=== PATIENT | male | born 1970 | race Two or more races ===

== ENCOUNTER 2018-07-27 01:02 | Emergency (ER) | payer MEDICAID ==
[~2018-07-27] VITALS: Ht 180.3 cm; Wt 93.0 kg
[2018-07-27] MEDS ORDERED: HydrOXYzine 50mg tab ORAL ONE (01:30)
[2018-07-27] MEDS ORDERED: Solu-MEDROL 125mg Inj IVP ONE (01:30)
--- NOTE | 2018-07-27 01:31 | Emergency Room Report ---
History of Present Illness General Chief Complaint: Allergic Reaction Source: Patient Present Illness HPI This is a 47-year-old male with no past medical history. He presents with allergic reaction. This morning he has some back pain so his coworker gave him some anti-inflammatory medication. He started getting very itchy. He went to [place] and was given Benadryl and dexamethasone. Symptom worsen as he take the Benadryl through the whole day. After taking the Benadryl he will get more rash and itching. No restaurant complaint. No fever chills but no nausea no vomiting. Never had this problem before. Allergies: Coded Allergies: No Known Allergies (Unverified , 07/27/18) Patient History Past Medical History: see triage record, old chart reviewed Past Surgical History: none Pertinent Family History: none Social History: Denies: smoking Immunizations: other Reviewed Nursing Documentation: PMH: Agreed; PSxH: Agreed Nursing Documentation-PM Past Medical History: No Stated History Review of Systems Eye: Denies: eye pain, blurred vision ENT: Denies: ear pain, nose congestion, throat swelling Respiratory: Denies: cough, shortness of breath Cardiovascular: Denies: chest pain, palpitations Gastrointestinal: Denies: abdominal pain, diarrhea, nausea, vomiting Musculoskeletal: Denies: back pain, joint pain Skin: Reports: rash Neurological: Denies: headache, numbness Endocrine: Denies: increased thirst, increased urine Hematologic/Lymphatic: Denies: easy bruising All Other Systems: negative except mentioned in HPI Physical Exam Vital Signs Date Time Temp Pulse Resp B/P (MAP) Pulse Ox O2 Delivery O2 Flow Rate FiO2 07/27/18 01:10 97.7 80 16 151/93 96 Room Air 97.7 vitals with high blood pressure Sp02 EP Interpretation: reviewed, normal General Appearance: well appearing, no apparent distress, alert Head: normocephalic, atraumatic Eyes: bilateral eye PERRL, bilateral eye EOMI ENT: hearing grossly normal, normal pharynx Neck: full range of motion, supple, no meningismus Respiratory: chest non-tender, lungs clear, normal breath sounds Cardiovascular #1: regular rate, rhythm, no murmur Gastrointestinal: normal bowel sounds, non tender, no mass, no organomegaly, no bruit, non-distended Musculoskeletal: back normal, gait/station normal, normal range of motion Neurologic: alert, oriented x3 Psychiatric: mood/affect normal Skin: warm/dry, rash - diffuse urticaria Medical Decision Making Diagnostic Impression: Primary Impression: Allergic reaction Qualified Codes: T78.40XA - Allergy, unspecified, initial encounter ER Course Patient with allergic reaction. No evidence of anaphylaxis or respiratory issue. Completely resolved with Solu-Medrol and Vistaril. We'll discharge home. Last Vital Signs Date Time Temp Pulse Resp B/P (MAP) Pulse Ox O2 Delivery O2 Flow Rate FiO2 07/27/18 01:10 97.7 80 16 151/93 96 Room Air 97.7 Status: improved Disposition: HOME, SELF-CARE Condition: Stable Scripts Hydroxyzine Pamoate* (VISTARIL*) 50 Mg Capsule 50 MG ORAL EVERY 6 HOURS, #30 TAB 0 Refills Prov: KATH LY M.D. 07/27/18 Patient Instructions: Drug Allergy Additional Instructions: Stop the Benadryl. Take Vistaril instead. Follow-up with your doctor in 7 days. Return if worse. KATH LY M.D. Jul 27, 2018 01:31
[2018-07-27 02:06] VITALS: BP 136/87
[2018-07-27] MEDS ORDERED: VISTARIL50 MG ORAL (02:55)
[2018-07-27 03:07] VITALS: BP 120/75
[2018-07-27 03:08] VITALS: BP 128/75
== END 2018-07-27 03:11 | disposition home or self-care (01) ==
LOC: EMR 01:35
DX: T78.40XA Allergy, unspecified, initial encounter (principal); X58.XXXA Exposure to other specified factors, initial encounter; R21 Rash and other nonspecific skin eruption
CPT/HCPCS: 96374; 96375; 99284; J2930; S0028

== ENCOUNTER 2019-02-21 14:37 | Inpatient (IN) | payer MEDICAID ==
[~2019-02-21] VITALS: Ht 182.9 cm; Wt 98.9 kg
[~2019-02-21 14:37] MED LIST: VISTARIL50 MG ORAL
[2019-02-21] MEDS ORDERED: NKM (14:43)
[2019-02-21 14:45] VITALS: BP 133/76
--- NOTE | 2019-02-21 14:51 | NUR ---
ED Nurse Note: Pt from home came in due to non radiating sternal CP started 2 hours ago. Denies SOB and N/V. Pt is AAO x4, ambulates with steady gait with unlabored breathing. Dr Davis aware.
--- NOTE | 2019-02-21 14:59 | Emergency Room Report ---
History of Present Illness General Chief Complaint: Chest Pain Source: Patient Present Illness HPI Patient is a 48-year-old male brought in by self after increased chest discomfort. Patient reports of increased pressure-like chest discomfort. This radiated to his left arm. Patient had onset of symptoms approximately 1-1/2 hours ago was intermittent in nature was onset during light activity. Patient denies any prior medical history but does not see his doctor regularly and is unsure if he has had prior history of diabetes or high cholesterol. Patient denies being a smoker. He states he does not drink alcohol regularly. Allergies: Coded Allergies: LORATADINE (Verified Allergy, Unknown, rash, 02/21/19) Patient History Past Medical History: see triage record Reviewed Nursing Documentation: PMH: Agreed; PSxH: Agreed Nursing Documentation-PMH Past Medical History: No Stated History Review of Systems All Other Systems: negative except mentioned in HPI Physical Exam Vital Signs Date Time Temp Pulse Resp B/P (MAP) Pulse Ox O2 Delivery O2 Flow Rate FiO2 02/21/19 14:41 98.2 66 16 138/87 97 Room Air Sp02 EP Interpretation: reviewed, normal General Appearance: normal inspection, well appearing, no apparent distress, alert, GCS 15 Head: atraumatic ENT: normal ENT inspection, hearing grossly normal, normal voice Neck: normal inspection, full range of motion, supple, no bony tend Respiratory: normal inspection, lungs clear, normal breath sounds, no respiratory distress, no retraction, no wheezing Cardiovascular #1: regular rate, rhythm, no edema Gastrointestinal: normal inspection, normal bowel sounds, non tender, soft, no guarding, no hernia Genitourinary: no CVA tenderness Musculoskeletal: normal inspection, back normal, normal range of motion Neurologic: normal inspection, alert, oriented x3, responsive, mandrel press hand III-XII nml as tested, speech normal Psychiatric: normal inspection, judgement/insight normal, mood/affect normal Skin: normal inspection, normal color, no rash Medical Decision Making Diagnostic Impression: Primary Impression: Chest pain Additional Impression: ACS (acute coronary syndrome) ER Course Patient presented for chest pain. Differential diagnosis included but was not limited to acute coronary syndrome, pulmonary embolism, pneumonia, aortic dissection, shingles, pneumothorax, aortic dissection, esophageal rupture, pericarditis. It was noted to have EKG which showed normal sinus rhythm with nonspecific lateral ST changes. Repeat EKG at 1512 showed improvement of previous ST changes. Patient was given aspirin. Patient was given Lovenox. EKG interpreted by me showed normal sinus rhythm with a rate of [address] elevation. Patient was noted to have some trace ST depression in lead aVL and lead I which resolved with medications and when pain is resolved. Dr. Andrew Christy was contacted for inpatient management Labs Test 02/21/19 15:09 White Blood Count 7.6 K/UL (4.8-10.8) Red Blood Count 4.95 M/UL (4.70-6.10) Hemoglobin 14.3 G/DL (14.2-18.0) Hematocrit 42.0 % (42.0-52.0) Mean Corpuscular Volume 85 FL (80-99) Mean Corpuscular Hemoglobin 28.9 PG (27.0-31.0) Mean Corpuscular Hemoglobin Concent 34.1 G/DL (32.0-36.0) Red Cell Distribution Width 12.3 % (11.6-14.8) Platelet Count 252 K/UL (150-450) Mean Platelet Volume 7.3 FL (6.5-10.1) Neutrophils (%) (Auto) 52.7 % (45.0-75.0) Lymphocytes (%) (Auto) 37.0 % (20.0-45.0) Monocytes (%) (Auto) 8.3 % (1.0-10.0) Eosinophils (%) (Auto) 1.0 % (0.0-3.0) Basophils (%) (Auto) 1.0 % (0.0-2.0) D-Dimer 0.19 mg/L FEU (0.00-0.49) Sodium Level 140 MMOL/L (136-145) Potassium Level 4.0 MMOL/L (3.5-5.1) Chloride Level 102 MMOL/L (98-107) Carbon Dioxide Level 28 MMOL/L (21-32) Anion Gap 10 mmol/L (5-15) Blood Urea Nitrogen 23 mg/dL (7-18) Creatinine 0.9 MG/DL (0.55-1.30) Estimat Glomerular Filtration Rate > 60 mL/min (>60) Glucose Level 88 MG/DL (74-106) Calcium Level 9.2 MG/DL (8.5-10.1) Total Bilirubin 0.3 MG/DL (0.2-1.0) Aspartate Amino Transf (AST/SGOT) 32 U/L (15-37) Alanine Aminotransferase (ALT/SGPT) 98 U/L (12-78) Alkaline Phosphatase 54 U/L (46-116) Total Creatine Kinase 280 U/L (26-308) Creatine Kinase MB 5.6 NG/ML (0.0-3.6) Creatine Kinase MB Relative Index 2.0 Troponin I 0.000 ng/mL (0.000-0.056) C-Reactive Protein, Quantitative 0.6 mg/dL (0.00-0.90) Pro-B-Type Natriuretic Peptide 27 pg/mL (0-125) Total Protein 7.4 G/DL (6.4-8.2) Albumin 3.7 G/DL (3.4-5.0) Globulin 3.7 g/dL Albumin/Globulin Ratio 1.0 (1.0-2.7) Lipase 120 U/L (73-393) EKG Diagnostic Results Rate: normal Rhythm: NSR ST Segments: no acute changes Rhythm Strip Diag. Results EP Interpretation: yes Rhythm: NSR, no PVC's, no ectopy Last Vital Signs Date Time Temp Pulse Resp B/P (MAP) Pulse Ox O2 Delivery O2 Flow Rate FiO2 02/21/19 14:41 98.2 66 16 138/87 97 Room Air Status: improved Disposition: ADMITTED INPATIENT Condition: Serious Enrique Davis MD Feb 21, 2019 14:59
[2019-02-21] MEDS ORDERED: Aspirin Baby 81mg ORAL ONE (15:00)
[2019-02-21] MEDS ORDERED: Nitroglycerin Subl 0.4mg tab SL PRN ×2 (15:00→17:00)
--- NOTE | 2019-02-21 15:30 | NUR ---
ED Nurse Note: Blood specimen collected and sent.
[2019-02-21 15:35] LABS: HEMOGLOBIN 14.3 G/DL (14.2-18.0); MEAN CORPUSCULAR VOLUME 85 FL (80-99); MONOCYTES % (AUTO) 8.3 % (1.0-10.0); NEUTROPHILS % (AUTO) 52.7 % (45.0-75.0); PLATELET COUNT 252 K/UL (150-450); RED BLOOD COUNT 4.95 M/UL (4.70-6.10); RED CELL DISTRIBUTION WIDTH 12.3 % (11.6-14.8); WHITE BLOOD COUNT 7.6 K/UL (4.8-10.8)
[2019-02-21 15:36] LABS: ANION GAP 10 mmol/L (5-15); BLOOD UREA NITROGEN 23 mg/dL (7-18); CALCIUM 9.2 MG/DL (8.5-10.1); CARBON DIOXIDE 28 MMOL/L (21-32); CHLORIDE 102 MMOL/L (98-107); CREATININE 0.9 MG/DL (0.55-1.30); SODIUM 140 MMOL/L (136-145)
[2019-02-21 15:51] LABS: ALANINE AMINOTRANSFERASE 98 U/L (12-78); ALBUMIN 3.7 G/DL (3.4-5.0); ALKALINE PHOSPHATASE 54 U/L (46-116); ASPARTATE AMINO TRANSFERASE 32 U/L (15-37); BILIRUBIN,TOTAL 0.3 MG/DL (0.2-1.0); CKMB 5.6 NG/ML (0.0-3.6); CREATINE KINASE 280 U/L (26-308)
[2019-02-21 16:30] VITALS: BP 106/64
[2019-02-21] MEDS ORDERED: Enoxaparin 80mg Inj SUBQ ONE (16:30)
[2019-02-21] MEDS ORDERED: Miralax 17gm pkt ORAL PRN (17:00)
[2019-02-21] MEDS ORDERED: dilTIAZem HCl 25mg/5ml Inj IV PRN (17:00)
[2019-02-21] MEDS ORDERED: Enalaprilat 2.5mg/2ml Inj IV PRN (17:00)
[2019-02-21] MEDS ORDERED: Morphine Sulfate 2mg/ml Inj(IV/IM USE ONLY) IVP PRN (17:00)
[2019-02-21] MEDS ORDERED: Ketorolac 30mg Inj IV PRN (17:00)
[2019-02-21] MEDS ORDERED: Albuterol/Ipratropium 3ml neb HHN PRN (17:00)
--- NOTE | 2019-02-21 17:09 | NUR ---
ED Nurse Note: Pt retsing on bed with no s/s of distress. Denies CP at this time. Pt is aware of admission.
--- NOTE | 2019-02-21 17:25 | NUR ---
ED Nurse Note: $1251 ham money kept by patient in his wallet. Pt refused to keep it in the hospital safe.
--- NOTE | 2019-02-21 18:09 | NUR ---
ED Nurse Note: TRIED TO GIVE REPORT BUT UNBALE AT THIS TIME. CHARGE NURSE DAISHA SAID TO CALL BACK AGAIN AFTER 10MINS.
--- NOTE | 2019-02-21 18:27 | NUR ---
ED Nurse Note: REPORT GIVEN TO IBIS SABILLON OF TELEMETRY UNIT. NOTIFIED OF [employer] $1251.
[2019-02-21 18:34] VITALS: BP 112/70
--- NOTE | 2019-02-21 18:36 | NUR ---
ED Nurse Note: PT SENT TO TELEMETRY UN[facility] WILL ALL BELONGINGS. VSS.
[2019-02-21 18:45] VITALS: BP 131/92
--- NOTE | 2019-02-21 18:45 | NUR ---
NURSE NOTES: Patient arrived to [facility] on a gurney. Patient is on RA and breathing even and unlabored. Patient denies pain at this time. Heart monitor was applied per protocol. Rhythm is SR at 61. v/s were taken. Call light within reached, bed in lowest position, and side rails x2 are up. Addendum: 02/21/19 at 2001 by Munir Meade RN Report was received by RAMANDEEP Luu.
--- NOTE | 2019-02-21 18:49 | Diagnostic Imaging Report ---
Indication: Shortness of breath Technique: One view of the chest Comparison: 01/31/2011 Findings: Lungs and pleural spaces are clear. Heart size is normal Impression: No acute process
--- NOTE | 2019-02-21 19:15 | NUR ---
HAND-OFF: Report given to RAMANDEEP Arias.
--- NOTE | 2019-02-21 19:30 | NUR ---
NURSE NOTES: Report received from Dominick Ferguson RN. Pt is awake, alert, and oriented x4. Pt is on room air and breathing is even and unlabored. No acute distress noted. IV site is R AC#20g and is asymptomatic, patent, and intact. Bed is placed in lowest position with brake engaged and side rails up x2. Pt independently ambulatory with steady gait. Pt denies pain at this time. Call light and side table placed within reach. Will continue to monitor.
[2019-02-21 20:00] VITALS: BP 126/85
--- NOTE | 2019-02-21 20:36 | Cardiology Progress Note ---
Assessment/Plan Assessment/Plan [id number] Objective Last 24 Hour Vital Signs Date Time Temp Pulse Resp B/P (MAP) Pulse Ox O2 Delivery O2 Flow Rate FiO2 02/21/19 20:00 98.1 56 18 126/85 (99) 98 02/21/19 19:43 Room Air 02/21/19 18:45 97.3 61 18 131/92 (105) 98 02/21/19 18:34 98.6 82 18 112/70 100 Room Air 02/21/19 18:34 98.6 82 18 112/70 100 Room Air 02/21/19 16:30 98.3 79 20 106/64 100 Room Air 02/21/19 15:07 133/76 02/21/19 14:51 87 18 Room Air 02/21/19 14:45 98.2 87 18 133/76 98 Room Air 02/21/19 14:41 98.2 66 16 138/87 97 Room Air Laboratory Tests Test 02/21/19 15:09 White Blood Count 7.6 K/UL (4.8-10.8) Red Blood Count 4.95 M/UL (4.70-6.10) Hemoglobin 14.3 G/DL (14.2-18.0) Hematocrit 42.0 % (42.0-52.0) Mean Corpuscular Volume 85 FL (80-99) Mean Corpuscular Hemoglobin 28.9 PG (27.0-31.0) Mean Corpuscular Hemoglobin Concent 34.1 G/DL (32.0-36.0) Red Cell Distribution Width 12.3 % (11.6-14.8) Platelet Count 252 K/UL (150-450) Mean Platelet Volume 7.3 FL (6.5-10.1) Neutrophils (%) (Auto) 52.7 % (45.0-75.0) Lymphocytes (%) (Auto) 37.0 % (20.0-45.0) Monocytes (%) (Auto) 8.3 % (1.0-10.0) Eosinophils (%) (Auto) 1.0 % (0.0-3.0) Basophils (%) (Auto) 1.0 % (0.0-2.0) D-Dimer 0.19 mg/L FEU (0.00-0.49) Sodium Level 140 MMOL/L (136-145) Potassium Level 4.0 MMOL/L (3.5-5.1) Chloride Level 102 MMOL/L (98-107) Carbon Dioxide Level 28 MMOL/L (21-32) Anion Gap 10 mmol/L (5-15) Blood Urea Nitrogen 23 mg/dL (7-18) H Creatinine 0.9 MG/DL (0.55-1.30) Estimat Glomerular Filtration Rate > 60 mL/min (>60) Glucose Level 88 MG/DL (74-106) Calcium Level 9.2 MG/DL (8.5-10.1) Total Bilirubin 0.3 MG/DL (0.2-1.0) Aspartate Amino Transf (AST/SGOT) 32 U/L (15-37) Alanine Aminotransferase (ALT/SGPT) 98 U/L (12-78) H Alkaline Phosphatase 54 U/L (46-116) Total Creatine Kinase 280 U/L (26-308) Creatine Kinase MB 5.6 NG/ML (0.0-3.6) H Creatine Kinase MB Relative Index 2.0 Troponin I 0.000 ng/mL (0.000-0.056) C-Reactive Protein, Quantitative 0.6 mg/dL (0.00-0.90) Pro-B-Type Natriuretic Peptide 27 pg/mL (0-125) Total Protein 7.4 G/DL (6.4-8.2) Albumin 3.7 G/DL (3.4-5.0) Globulin 3.7 g/dL Albumin/Globulin Ratio 1.0 (1.0-2.7) Lipase 120 U/L (73-393) Ambrosio An MD Feb 21, 2019 20:36
[2019-02-21] MEDS: Heparin 5000 units/ml inj SUBQ SCH (20:48)
--- NOTE | 2019-02-21 20:51 | History & Physical ---
History and Physical History & Physicial Dictated for Int Med-Dr Christy. Dewey Corbin MD Feb 21, 2019 20:51
--- NOTE | 2019-02-21 22:45 | Consultation ---
DATE OF CONSULTATION: 02/21/2019 Cardiology Consultation CONSULTING PHYSICIAN: Ambrosio An M.D. REFERRING PHYSICIAN: Andrew Christy M.D. REASON FOR REFERRAL: Chest pain. HISTORY OF PRESENT ILLNESS: This is a middle-aged gentleman, who presented to the hospital because of abdominal pain that occurred today. First episode of pain lasted approximately one minute or so, second one went away and came back with a pressure sensation in the chest and he told his boss. He drove himself down to the emergency room. By the time he got here, the pain is improved and subsequently went away. He told the pain was approximately 15 minutes. He has never had this pain before. He is usually very active. He hikes on a regular basis, 3 or 4 times a week. He never had any pain, pressure, tightness, heaviness, shortness of breath, ascites with any of those activities and never had this pain before. There is no PND, uses two pillows for comfort. No palpitation. Occasional dizziness. No lightheadedness on standing. PAST MEDICAL HISTORY: Fairly unremarkable. No diabetes, high blood pressure, heart attack, cancer, stroke, hepatitis tuberculosis, asthma, emphysema, ulcers, kidney problems, liver problems, thyroid problems, anemia, arthritis, HIV or AIDS, blood clots or prostate problems anywhere. He has seen the physician last time 6 months ago but he has been in the process of following between different insurances. REVIEW OF SYSTEMS: GASTROINTESTINAL: Negative. GENITOURINARY: Negative. PULMONARY: Negative. CONSTITUTIONAL: Negative. NEUROLOGIC: Negative. ALLERGIES: He is not allergic to any medications. SOCIAL HISTORY: Does not smoke or drink alcoholic beverages. He works as a cook. PHYSICAL EXAMINATION: GENERAL: Shows to be middle-aged gentleman, in no respiratory distress. NECK: Supple. No jugular distention. LUNGS: Clear to auscultation and percussion. CARDIAC: S1 is normal. S2 is normal. Regular rate and rhythm. No heaves, thrills, or gallops noted. ABDOMEN: Soft, nontender. Positive bowel sounds. EXTREMITIES: There is no clubbing, cyanosis, nor is there any edema. NEUROLOGICAL: He is awake, alert, responsive, and in no apparent respiratory distress. LABORATORY AND DIAGNOSTIC DATA: White count 7.6, hemoglobin 14.3, platelet count 252. Sodium is 140, potassium 4.0, chloride 102, bicarb 28, BUN 23, creatinine 0.9, and glucose of 88. Liver function tests are relatively normal although his ALT is minimally elevated at 98, total CK of 280. First set of cardiac enzymes negative. CRP negative at 0.6. ProBNP of 27. Lipase of 120. D-dimer was 0.19. Chest x-ray showed no acute processes and his EKG shows biphasic T-waves in V1 and V4. ASSESSMENT AND PLAN: Chest pain. This patient was seen in cardiac consultation. The pain lasted approximately 15 minutes. He has never had this pain before. He does not have any significant history of diabetes, high blood pressure, high cholesterol, although he has not seen a physician in the past 6 months. His blood sugar today has not been elevated. He should have serial enzymes and EKGs checked and echocardiogram checked for tomorrow morning, depending on the results of his tests other testing may be ordered a including possible exercise stress test, Cardiolite. Ambrosio An M.D. DR: Jordi JOB#: [id number] CC:
[2019-02-22] VITALS: BP 106/70
[2019-02-22 04:00] VITALS: BP 114/65
[2019-02-22 06:36] LABS: BASOPHILS % (AUTO) 0.8 % (0.0-2.0); EOSINOPHILS % (AUTO) 0.9 % (0.0-3.0); HEMOGLOBIN 14.9 G/DL (14.2-18.0); MEAN CORPUSCULAR VOLUME 86 FL (80-99); MONOCYTES % (AUTO) 8.4 % (1.0-10.0); NEUTROPHILS % (AUTO) 45.8 % (45.0-75.0); PLATELET COUNT 247 K/UL (150-450); RED BLOOD COUNT 5.12 M/UL (4.70-6.10); RED CELL DISTRIBUTION WIDTH 12.2 % (11.6-14.8); WHITE BLOOD COUNT 6.7 K/UL (4.8-10.8)
[2019-02-22 07:08] LABS: CHOLESTEROL 202 MG/DL (< 200); HDL CHOLESTEROL 40 MG/DL (40-60); TRIGLYCERIDES 118 MG/DL (30-150)
--- NOTE | 2019-02-22 07:21 | NUR ---
HAND-OFF: Report given to Dominick Batres RN. Pt is resting in bed in stable condition. No acute distress noted. Endorsed plan of care.
--- NOTE | 2019-02-22 07:26 | NUR ---
CASE MANAGEMENT:REVIEW 48 YR OLD MALE PRESENTED TO ER CC: CHEST PAIN SI: ACS 98.2 66 16 138/87 97% ON RA CK-MB+5.6 TROPONIN(-) IS: ASA PO NTG SL X1 LOVENOX SQ X1 500CC NS BOLUS CXR : TO TELEMETRY UNIT PLAN: STRESS TEST
[2019-02-22 08:00] VITALS: BP 119/76
--- NOTE | 2019-02-22 08:00 | NUR ---
NURSE NOTE Received patient from Juana SABILLON. Patient in bed, awake, alert and oriented x4. Denies pain at this time. IV #20 on RAC intact, no s/s of infection or infiltration. Patient calm and cooperative, understands plan of care. Bed in low position, call light within reach.
--- NOTE | 2019-02-22 08:40 | NUR ---
NURSE NOTES: Addendum: 02/22/19 at 0916 by Rocky Mccarthy RN Patient refused heparin sq. Instructed patient that it is for preventing blood clots. Patient refused and stated that the one received last night was very painful and gave him a bruise.
[2019-02-22] MEDS: Heparin 5000 units/ml inj SUBQ SCH ×2 (08:43→08:48)
[2019-02-22] MEDS ORDERED: Aspirin Baby 81mg ORAL SCH (09:00)
--- NOTE | 2019-02-22 10:48 | Consultation ---
History of Present Illness General Date patient seen: Feb 22, 2019 Chief Complaint: Chest Pain Present Illness HPI 48-year-old male without any pmhx brought in by self after increased chest discomfort, pressure-like chest discomfort. This radiated to his left arm. Patient had onset of symptoms approximately 1-1/2 hours ago was intermittent in nature was onset during light activity. Patient denies being a smoker. pt is admitted to telemetry for further work up. Allergies: Coded Allergies: LORATADINE (Verified Allergy, Unknown, rash, 02/21/19) Medication History Scheduled Hydroxyzine Pamoate* (Vistaril*), 50 MG ORAL EVERY 6 HOURS No Known Medications* (NKM - No Known Medications*), 0 ., (Reported) Patient History Healthcare decision maker Resuscitation status Full Code Advanced Directive on File Past Medical/Surgical History Past Medical/Surgical History: (1) No pertinent past medical history Review of Systems Constitutional: Reports: no symptoms Eye: Reports: no symptoms Physical Exam General Appearance: WD/WN Lines, tubes and drains: peripheral HEENT: normocephalic Neck: non-tender, abnormal alignment Respiratory/Chest: chest wall non-tender, no respiratory distress Abdomen: normal bowel sounds Genitourinary/Rectal: normal genital exam Last 24 Hour Vital Signs Date Time Temp Pulse Resp B/P (MAP) Pulse Ox O2 Delivery O2 Flow Rate FiO2 02/22/19 08:52 Room Air 02/22/19 08:00 63 02/22/19 08:00 98.0 50 18 119/76 (90) 97 02/22/19 04:00 98.0 56 18 114/65 (81) 98 02/22/19 04:00 54 02/22/19 00:00 98.1 64 18 106/70 (82) 98 02/22/19 00:00 59 02/21/19 21:00 Room Air 02/21/19 20:00 98.1 56 18 126/85 (99) 98 02/21/19 20:00 59 02/21/19 19:43 Room Air 02/21/19 18:45 97.3 61 18 131/92 (105) 98 02/21/19 18:34 98.6 82 18 112/70 100 Room Air 02/21/19 18:34 98.6 82 18 112/70 100 Room Air 02/21/19 16:30 98.3 79 20 106/64 100 Room Air 02/21/19 15:07 133/76 02/21/19 14:51 87 18 Room Air 02/21/19 14:45 98.2 87 18 133/76 98 Room Air 02/21/19 14:41 98.2 66 16 138/87 97 Room Air Intake and Output 02/21/19 02/22/19 19:00 07:00 Intake Total 500 ml Balance 500 ml Intake IV Total 500 ml # Voids 1 1 Laboratory Tests Test 02/21/19 15:09 02/22/19 05:40 White Blood Count 7.6 K/UL (4.8-10.8) 6.7 K/UL (4.8-10.8) Red Blood Count 4.95 M/UL (4.70-6.10) 5.12 M/UL (4.70-6.10) Hemoglobin 14.3 G/DL (14.2-18.0) 14.9 G/DL (14.2-18.0) Hematocrit 42.0 % (42.0-52.0) 44.0 % (42.0-52.0) Mean Corpuscular Volume 85 FL (80-99) 86 FL (80-99) Mean Corpuscular Hemoglobin 28.9 PG (27.0-31.0) 29.1 PG (27.0-31.0) Mean Corpuscular Hemoglobin Concent 34.1 G/DL (32.0-36.0) 33.9 G/DL (32.0-36.0) Red Cell Distribution Width 12.3 % (11.6-14.8) 12.2 % (11.6-14.8) Platelet Count 252 K/UL (150-450) 247 K/UL (150-450) Mean Platelet Volume 7.3 FL (6.5-10.1) 7.5 FL (6.5-10.1) Neutrophils (%) (Auto) 52.7 % (45.0-75.0) 45.8 % (45.0-75.0) Lymphocytes (%) (Auto) 37.0 % (20.0-45.0) 44.0 % (20.0-45.0) Monocytes (%) (Auto) 8.3 % (1.0-10.0) 8.4 % (1.0-10.0) Eosinophils (%) (Auto) 1.0 % (0.0-3.0) 0.9 % (0.0-3.0) Basophils (%) (Auto) 1.0 % (0.0-2.0) 0.8 % (0.0-2.0) D-Dimer 0.19 mg/L FEU (0.00-0.49) Sodium Level 140 MMOL/L (136-145) Potassium Level 4.0 MMOL/L (3.5-5.1) Chloride Level 102 MMOL/L (98-107) Carbon Dioxide Level 28 MMOL/L (21-32) Anion Gap 10 mmol/L (5-15) Blood Urea Nitrogen 23 mg/dL (7-18) H Creatinine 0.9 MG/DL (0.55-1.30) Estimat Glomerular Filtration Rate > 60 mL/min (>60) Glucose Level 88 MG/DL (74-106) Calcium Level 9.2 MG/DL (8.5-10.1) Total Bilirubin 0.3 MG/DL (0.2-1.0) Aspartate Amino Transf (AST/SGOT) 32 U/L (15-37) Alanine Aminotransferase (ALT/SGPT) 98 U/L (12-78) H Alkaline Phosphatase 54 U/L (46-116) Total Creatine Kinase 280 U/L (26-308) Creatine Kinase MB 5.6 NG/ML (0.0-3.6) H Creatine Kinase MB Relative Index 2.0 Troponin I 0.000 ng/mL (0.000-0.056) 0.001 ng/mL (0.000-0.056) C-Reactive Protein, Quantitative 0.6 mg/dL (0.00-0.90) 0.5 mg/dL (0.00-0.90) Pro-B-Type Natriuretic Peptide 27 pg/mL (0-125) Total Protein 7.4 G/DL (6.4-8.2) Albumin 3.7 G/DL (3.4-5.0) Globulin 3.7 g/dL Albumin/Globulin Ratio 1.0 (1.0-2.7) Lipase 120 U/L (73-393) Prothrombin Time 10.3 SEC (9.30-11.50) Prothromb Time International Ratio 1.0 (0.9-1.1) Activated Partial Thromboplast Time 30 SEC (23-33) Triglycerides Level 118 MG/DL (30-150) Cholesterol Level 202 MG/DL (< 200) H LDL Cholesterol 146 mg/dL (<100) H HDL Cholesterol 40 MG/DL (40-60) Cholesterol/HDL Ratio 5.1 (3.3-4.4) H Thyroid Stimulating Hormone (TSH) 0.712 uiU/mL (0.358-3.740) Height (Feet): 6 Height (Inches): 6.00 Weight (Pounds): 218 Medications Current Medications Medications (Trade) Dose Ordered Sig/Robert Route PRN Reason Start Time Stop Time Status Last Admin Dose Admin Acetaminophen (Tylenol) 650 mg Q4H PRN ORAL FEVER 02/21/19 17:00 03/23/19 16:59 Albuterol/ Ipratropium (Albuterol/ Ipratropium) 3 ml Q4H PRN HHN Shortness of Breath 02/21/19 17:00 02/26/19 16:59 Aspirin (ASA) 162 mg DAILY ORAL 02/22/19 09:00 03/24/19 08:59 02/22/19 08:40 Diltiazem HCl (Cardizem) 10 mg Q1H PRN IV heart rate more than 120, 02/21/19 17:00 03/23/19 16:59 Enalaprilat (Vasotec) 2.5 mg Q6H PRN IV sbp more than 160 02/21/19 17:00 03/23/19 16:59 Heparin Sodium (Porcine) (Heparin 5000 units/ml) 5,000 units EVERY 12 HOURS SUBQ 02/21/19 21:00 03/23/19 20:59 Ketorolac Tromethamine (Toradol 30mg) 30 mg Q6H PRN IV moderate pain ( 4-6) 02/21/19 17:00 02/26/19 16:59 Morphine Sulfate (Morphine Sulfate) 2 mg Q4H PRN IVP severe Pain (Pain Scale 7-10) 02/21/19 17:00 02/28/19 16:59 Nitroglycerin (Ntg) 0.4 mg Q5M PRN SL Prn Chest Pain 02/21/19 17:00 03/23/19 16:59 Ondansetron HCl (Zofran) 4 mg Q6H PRN IVP Nausea & Vomiting 02/21/19 17:00 03/23/19 16:59 Polyethylene Glycol (Miralax) 17 gm DAILYPRN PRN ORAL Constipation 02/21/19 17:00 03/23/19 16:59 Temazepam (Restoril) 15 mg HSPRN PRN ORAL Insomnia 02/21/19 17:00 02/28/19 16:59 Assessment/Plan Problem List: (1) ACS (acute coronary syndrome) ICD Codes: I24.9 - Acute ischemic heart disease, unspecified SNOMED: 190361345 (2) No pertinent past medical history ICD Codes: Z78.9 - Other specified health status SNOMED: 246375157 Assessment/Plan serial ekg, troponin echo cardio to see. Olga Cardenas MD Feb 22, 2019 10:48
[2019-02-22 12:00] VITALS: BP 126/85
--- NOTE | 2019-02-22 12:03 | Cardiology Report ---
APPROVED REPORT EXAM: Two-dimensional and M-mode echocardiogram with Doppler and color Doppler. INDICATION LV FUCNTION M-Mode DIMENSIONS IVSd1.3 (0.7-1.1cm)Left Atrium (MM)3.0 (1.6-4.0cm) LVDd5.4 (3.5-5.6cm)Aortic Root3.8 (2.0-3.7cm) PWd1.3 (0.7-1.1cm)Aortic Cusp Exc.2.0 (1.5-2.0cm) IVSs1.7 cm LVDs3.9 (2.5-4.0cm) PWs1.2 cm Normal left ventricular chamber size, systolic function and wall motion. Left ventricular ejection fraction estimated to be 55%. Mild left ventricular hypertrophy by 2-D. No evidence of pericardial effusion. All other cardiac chamber sizes are within normal limits. Focal aortic valve sclerosis with adequate cusp excursion. Mildly Thickened mitral valve leaflets with normal excursion. pulmonic valve not well visualized. Normal tricuspid valve structure. IVC at normal size without physiologic collapse. A color flow and spectral Doppler study was performed and revealed: No aortic regurgitation. Mild mitral regurgitation. Mitral diastolic velocities suggest reduced left ventricular relaxation c/w mild LV diastolic dysfunction (Grade I ). Mild tricuspid regurgitation. Tricuspid systolic velocities suggests peak right ventricular systolic pressure of 30mmHg.
--- NOTE | 2019-02-22 12:22 | Cardiology Progress Note ---
Assessment/Plan Assessment/Plan chest pain hyper lipidemia trop neg ekg repeat neg stress test today home if neg Subjective Cardiovascular: Denies: chest pain, lightheadedness, palpitations Respiratory: Denies: shortness of breath Gastrointestinal/Abdominal: Denies: abdominal pain Genitourinary: Denies: burning Objective Last 24 Hour Vital Signs Date Time Temp Pulse Resp B/P (MAP) Pulse Ox O2 Delivery O2 Flow Rate FiO2 02/22/19 12:00 98.0 86 16 126/85 (99) 98 02/22/19 08:52 Room Air 02/22/19 08:00 63 02/22/19 08:00 98.0 50 18 119/76 (90) 97 02/22/19 04:00 98.0 56 18 114/65 (81) 98 02/22/19 04:00 54 02/22/19 00:00 98.1 64 18 106/70 (82) 98 02/22/19 00:00 59 02/21/19 21:00 Room Air 02/21/19 20:00 98.1 56 18 126/85 (99) 98 02/21/19 20:00 59 02/21/19 19:43 Room Air 02/21/19 18:45 97.3 61 18 131/92 (105) 98 02/21/19 18:34 98.6 82 18 112/70 100 Room Air 02/21/19 18:34 98.6 82 18 112/70 100 Room Air 02/21/19 16:30 98.3 79 20 106/64 100 Room Air 02/21/19 15:07 133/76 02/21/19 14:51 87 18 Room Air 02/21/19 14:45 98.2 87 18 133/76 98 Room Air 02/21/19 14:41 98.2 66 16 138/87 97 Room Air General Appearance: no apparent distress, alert Neck: supple Cardiovascular: normal rate Respiratory/Chest: lungs clear, normal breath sounds Abdomen: normal bowel sounds, non tender, soft Extremities: no swelling Intake and Output 02/21/19 02/22/19 19:00 07:00 Intake Total 500 ml Balance 500 ml Intake IV Total 500 ml # Voids 1 1 Laboratory Tests Test 02/21/19 15:09 02/22/19 05:40 White Blood Count 7.6 K/UL (4.8-10.8) 6.7 K/UL (4.8-10.8) Red Blood Count 4.95 M/UL (4.70-6.10) 5.12 M/UL (4.70-6.10) Hemoglobin 14.3 G/DL (14.2-18.0) 14.9 G/DL (14.2-18.0) Hematocrit 42.0 % (42.0-52.0) 44.0 % (42.0-52.0) Mean Corpuscular Volume 85 FL (80-99) 86 FL (80-99) Mean Corpuscular Hemoglobin 28.9 PG (27.0-31.0) 29.1 PG (27.0-31.0) Mean Corpuscular Hemoglobin Concent 34.1 G/DL (32.0-36.0) 33.9 G/DL (32.0-36.0) Red Cell Distribution Width 12.3 % (11.6-14.8) 12.2 % (11.6-14.8) Platelet Count 252 K/UL (150-450) 247 K/UL (150-450) Mean Platelet Volume 7.3 FL (6.5-10.1) 7.5 FL (6.5-10.1) Neutrophils (%) (Auto) 52.7 % (45.0-75.0) 45.8 % (45.0-75.0) Lymphocytes (%) (Auto) 37.0 % (20.0-45.0) 44.0 % (20.0-45.0) Monocytes (%) (Auto) 8.3 % (1.0-10.0) 8.4 % (1.0-10.0) Eosinophils (%) (Auto) 1.0 % (0.0-3.0) 0.9 % (0.0-3.0) Basophils (%) (Auto) 1.0 % (0.0-2.0) 0.8 % (0.0-2.0) D-Dimer 0.19 mg/L FEU (0.00-0.49) Sodium Level 140 MMOL/L (136-145) Potassium Level 4.0 MMOL/L (3.5-5.1) Chloride Level 102 MMOL/L (98-107) Carbon Dioxide Level 28 MMOL/L (21-32) Anion Gap 10 mmol/L (5-15) Blood Urea Nitrogen 23 mg/dL (7-18) H Creatinine 0.9 MG/DL (0.55-1.30) Estimat Glomerular Filtration Rate > 60 mL/min (>60) Glucose Level 88 MG/DL (74-106) Calcium Level 9.2 MG/DL (8.5-10.1) Total Bilirubin 0.3 MG/DL (0.2-1.0) Aspartate Amino Transf (AST/SGOT) 32 U/L (15-37) Alanine Aminotransferase (ALT/SGPT) 98 U/L (12-78) H Alkaline Phosphatase 54 U/L (46-116) Total Creatine Kinase 280 U/L (26-308) Creatine Kinase MB 5.6 NG/ML (0.0-3.6) H Creatine Kinase MB Relative Index 2.0 Troponin I 0.000 ng/mL (0.000-0.056) 0.001 ng/mL (0.000-0.056) C-Reactive Protein, Quantitative 0.6 mg/dL (0.00-0.90) 0.5 mg/dL (0.00-0.90) Pro-B-Type Natriuretic Peptide 27 pg/mL (0-125) Total Protein 7.4 G/DL (6.4-8.2) Albumin 3.7 G/DL (3.4-5.0) Globulin 3.7 g/dL Albumin/Globulin Ratio 1.0 (1.0-2.7) Lipase 120 U/L (73-393) Prothrombin Time 10.3 SEC (9.30-11.50) Prothromb Time International Ratio 1.0 (0.9-1.1) Activated Partial Thromboplast Time 30 SEC (23-33) Triglycerides Level 118 MG/DL (30-150) Cholesterol Level 202 MG/DL (< 200) H LDL Cholesterol 146 mg/dL (<100) H HDL Cholesterol 40 MG/DL (40-60) Cholesterol/HDL Ratio 5.1 (3.3-4.4) H Thyroid Stimulating Hormone (TSH) 0.712 uiU/mL (0.358-3.740) Ambrosio An MD Feb 22, 2019 12:22
--- NOTE | 2019-02-22 12:28 | Cardiology Report ---
APPROVED REPORT EKG Measurement Heart [id number] Normal sinus rhythm Normal ECG
--- NOTE | 2019-02-22 13:14 | NUR ---
Myocardial Perfusion scan complete.
--- NOTE | 2019-02-22 14:01 | Diagnostic Imaging Report ---
Indications: 48-year-old male with chest pain Technique: Single day single isotope protocol utilized. Initially, resting images obtained using IV administration 10.4 millicuries 99M technetium Myoview. Subsequently, patient underwent treadmill stress testing. See cardiology report for details. During adenosine infusion, IV administration 30 mCi 99 M technetium Myoview. SPECT and planar images obtained. SPECT images gated to 8 phases of the cardiac cycle were also obtained, and reformatted into cine images for evaluation of ejection fraction. Comparison: none Findings: Presence or absence of symptoms during exercise is not described in the cardiology report, although the report to say that the patient stopped exercise due to having achieved target heart rate. Patient exercised for 9 minutes 33 seconds, reached a peak heart rate of 157 bpm, in excess of the target heart rate of 145 bpm. Per cardiology report, resting EKG demonstrates normal sinus rhythm. Report does not describe presence or absence of ST changes during exercise. Imaging demonstrates normal poststress perfusion. No fixed nor reversible post stress perfusion defects demonstrated. Calculated post stress ejection fraction 58%. No focal wall motion abnormality demonstrated Impression: Nonischemic clinical response to pharmacologic stress, per cardiology report Nonischemic electrocardiographic response to pharmacologic stress, per cardiology report No imaging findings to suggest ischemia, at level of stress achieved. Calculated post stress ejection fraction 58%
[2019-02-22 16:00] VITALS: BP 124/69
--- NOTE | 2019-02-22 17:07 | NUR ---
NURSE NOTES: Discharge order in, pt notified, IV removed and Id Band also, pt recieved after care plan and med recon. Pt Vitals WNL, Pt Ox4 calm and cooperative, pt stated he has all his belongings and wallet with him. no s/s of distress or sob. Pt stated he had all his money on discharge
--- NOTE | 2019-02-22 17:11 | NUR ---
NURSE NOTES: Md Cardenas notified of Stress test results, he siad to proceed with discharge
--- NOTE | 2019-02-22 22:45 | History and Physical Report ---
DATE OF ADMISSION: 02/21/2019 CHIEF COMPLAINT: The patient is a 48-year-old male, who presents with a chief complaint of chest pain. HISTORY OF PRESENT ILLNESS: Began on 02/21/2019 couple of hours prior to admission. The patient began to experience chest pain. Pain was substernal. The pain also radiates to the left arm. The symptoms occurred during light activity. The patient states that the pain resolved on its own. The patient presented to [facility] emergency room. The patient was admitted for chest pain rule out acute coronary syndrome. REVIEW OF SYSTEMS: CONSTITUTIONAL: The patient denies weight loss or weight gain. The patient denies fevers or chills. HEENT: The patient denies ear or throat pain. The patient denies headache. CARDIOVASCULAR: The patient complains of chest pain as above. The patient denies palpitations. ABDOMINAL: The patient denies nausea, vomiting, diarrhea, or constipation. GENITOURINARY: The patient denies dysuria or increased frequency of urination. NEUROMUSCULAR: The patient denies seizures or generalized weakness. PAST MEDICAL HISTORY: The patient denies. PAST SURGICAL HISTORY: The patient denies. CURRENT MEDICATIONS: The patient denies. ALLERGIES: No known drug allergies. SOCIAL HISTORY: The patient is single. The patient denies tobacco or alcohol use. PHYSICAL EXAMINATION: VITAL SIGNS: Temperature 98.2, respirations 16, pulse 66, and blood pressure 132/87. GENERAL: The patient is a well-developed and well-nourished male, in no apparent distress. HEENT: Eyes, pupils are equal and responsive to light and accommodation. Extraocular movements are intact. NECK: Supple without lymphadenopathy. CHEST: Lungs are clear to auscultation bilaterally without wheezes or rales. CARDIOVASCULAR: Regular rhythm and rate. S1 and S2 are normal without murmurs, rubs, or gallops. ABDOMEN: Soft, nontender, and nondistended. Positive bowel sounds. No evidence of hepatosplenomegaly. Currently, no rebound or guarding noted. EXTREMITIES: Negative for clubbing, cyanosis, or edema. RECTAL/GENITAL: Refused. NEUROLOGIC: Cranial nerves II through XII are grossly intact without focal deficits. Motor strength is 5/5 bilaterally. Deep tendon reflexes are 2+ plantar. LABORATORY STUDIES: WBC 7.6, hemoglobin 14.3, hematocrit 42.0, and platelets 252,000. Sodium 140, potassium 4.0, chloride 102, CO2 28, BUN 23, creatinine 0.9, and glucose 88. ALT elevated at 98. Troponin 0.0. Chest x-ray was reported as no acute disease. ASSESSMENT: This is a 48-year-old male. 1. Chest pain. TREATMENT: 1. Chest pain. A Cardiology consultation has been obtained with Dr. Ambrosio An. A Cardiolite stress test is pending. We will follow recommendation of Cardiology. Serial troponin levels will be performed. Dewey Corbin M.D. DR: ANN JOB#: [id number] CC:
--- NOTE | 2019-02-24 12:24 | Discharge Summary ---
Discharge Summary Discharge Summary _ DATE OF ADMISSION: 02/21/2019 DATE OF DISCHARGE: 02/22/2019 DISCHARGED BY: Dr. Christy REASON FOR ADMISSION: 48 years old male without significant past medical history, presented to emergency department with pressure-like chest discomfort with radiation to left arm. Symptoms started about 1-1/2-hour prior to presentation to ED. Symptoms were reported to be intermittent with onset during light activity. Patient denied smoking. Patient denied drinking alcohol on a regular basis. Upon evaluation vital signs were stable. Laboratory workup revealed no leukocytosis, stable hemoglobin and hematocrit. D-dimer stable -0.19. Stable electrolytes and renal parameters, stable LFT. Troponin negative. CK 280. Pro BNP 27. EKG revealed sinus rhythm, no acute ischemic changes. Chest x-ray demonstrated no acute cardiopulmonary pathology. Patient subsequently was admitted to telemetry floor for further workup. CONSULTANTS: quality improvement analyst Dr. An pulmonary Dr. Cardenas [facility]SE: Patient admitted to telemetry floor. Cardiology and pulmonology followed. Serial troponin were negative. EKG revealed no acute ischemic changes. Patient was ruled out for acute ID. Echocardiogram revealed preserved ejection fraction 55% with no evidence of wall motion abnormality. Mild left ventricular hypertrophy. No evidence of pericardial effusion. Right ventricular systolic pressure of 30. Blood pressure was closely monitored . Patient remained normotensive. Lipid panel revealed borderline elevated total cholesterol of 202 and elevated LDL 146. HDL 40. Patient subsequently undergone myocardial perfusion scan, which was nonischemic with calculated post stress ejection fraction of 58%. Patient was educated on low-fat low-cholesterol diet. Patient was counseled on therapeutic lifestyle changes. Patient was recommended to repeat lipid panel in 3 months . Supplemental oxygen was on board as needed to keep pulse oximetry above 92%. Pulmonary toilet was on board as needed. Pulse oximetry remained stable on room air. TSH within normal limits. Patient was stable for discharge home. Due to rapid and unexpected improvement in patient condition , patient was discharged in 1 day. FINAL DIAGNOSES: Chest pain Hyperlipidemia DISCHARGE MEDICATIONS: See Medication Reconciliation list. DISCHARGE INSTRUCTIONS: Patient was discharged home . Follow up with primary care provider in one week. I have been assigned to dictate discharge summary for this account. I was not involved in the patient's management. Cecilia Spencer NP Feb 24, 2019 12:24
--- NOTE | 2019-03-09 11:18 | Physician Query ---
--------- THIS DOCUMENT IS A PERMANENT PART OF THE MEDICAL RECORD --------- PLEASE COMPLETE THE DOCUMENT BEFORE SIGNING Dear Dr. SANTOS Date: 03/09/19 Maintenance Associate/CDS' Name: [email or web address] Exercise your independent professional judgment when responding to query. Questions asked do not imply particular answer is desired or expected. We greatly appreciate your clarification on this issue. Clinical Documentation States: Patient admitted to telemetry floor. Cardiology and pulmonology followed. Serial troponin were negative. EKG revealed no acute ischemic changes. Patient was ruled out for acute [place]. Echocardiogram revealed preserved ejection fraction 55% with no evidence of wall motion abnormality. Mild left ventricular hypertrophy. No evidence of pericardial effusion. Right ventricular systolic pressure of 30. Blood pressure was closely monitored . Patient remained normotensive. Lipid panel revealed borderline elevated total cholesterol of 202 and elevated LDL 146. HDL 40. Patient subsequently undergone myocardial perfusion scan, which was nonischemic with calculated post stress ejection fraction of 58%. FINAL DIAGNOSES: Chest pain ,Hyperlipidemia Please document the suspected etiology of Chest Pain: a.Type: []Cardiac []Non-cardiac []Unspecified b.Etiology - cardiac [] Aortic dissection []Mitral valve prolapsed [] Acute myocardial infarction []Spasm of coronary arteries [] Coronary Artery Disease []Pericarditis c.Etiology - non-cardiac [] Anxiety []Pleurisy [] Cancer []Pneumonia, type [] Costochondritis []Pneumothorax [] GERD/Esophagitis []Pulmonary embolism [] Unable to determine []Other: KATY SANTOS M.D. DATE & TIME [facility]
== END 2019-02-22 17:12 | disposition home or self-care (01) | DRG 203 ==
LOC: EMR 15:37 → 2E 16:12 → EDBEDREQ 17:39
DX: R07.89 Other chest pain (principal); E78.5 Hyperlipidemia, unspecified; Z88.8 Allergy status to other drugs, medicaments and biological substances
CPT/HCPCS: 36415; 71045; 78452; 80053; 80061; 82550; 82553; 83690; 83880; 84443; 84484; 85025; 85379; 85610; 85730; 86140; 93005; 93017; 93306; 96372; 99285